=== PATIENT | female | born 1935 | race Two or more races ===

== ENCOUNTER 2016-08-30 01:56 | Inpatient (IN) | payer MEDICAID, MEDICARE ==
[~2016-08-30] VITALS: Ht 154.9 cm; Wt 64.0 kg
[2016-08-30] MEDS ORDERED: ASPIRIN 81 MG TAB.CHEW ONE (02:03)
[2016-08-30] MEDS ORDERED: NITROGLYCERIN 0.4 MG/TAB BOTTLE ONE (02:09)
[2016-08-30] MEDS ORDERED: ASPIRIN 81 MG TAB.CHEW PO ONE (02:30)
[2016-08-30] MEDS ORDERED: NITROGLYCERIN 0.4 MG/TAB BOTTLE SL ONE (02:30)
[2016-08-30 02:31] LABS: BASOPHILS % (AUTO) 0.2 % (0.0-2.0); DIFF TOTAL % 100 %; EOSINOPHILS # (AUTO) 0.1 /CMM (0.0-0.7); EOSINOPHILS % (AUTO) 1.9 % (0.0-6.0); HEMATOCRIT 41 % (33-45); HEMOGLOBIN 13.7 g/dL (11.5-14.8); LYMPHOCYTES # (AUTO) 0.7 /CMM (0.8-4.8); LYMPHOCYTES % (AUTO) 24.2 % (20.0-44.0); MEAN CORPUSCULAR HEMOGLOBIN 29 PG (26.0-33.0); MEAN CORPUSCULAR HGB CONC 34 g/dl (31.0-36.0); MEAN CORPUSCULAR VOLUME 87 fL (82-100); MONOCYTES % (AUTO) 0.7 % (2.0-12.0); NEUTROPHILS # (AUTO) 2.2 /CMM (1.8-8.9); PLATELET COUNT (AUTO) 141 /CMM (150-450); RED BLOOD CELL COUNT(AUTO) 4.67 MIL/uL (4.0-5.2)
[2016-08-30 02:42] LABS: CALCIUM, SERUM 9.1 mg/dL (8.5-10.1); CREATININE 1.1 mg/dL (0.6-1.3); POTASSIUM 4.1 mmol/L (3.5-5.1)
[2016-08-30 02:49] LABS: TROPONIN I 0.034 ng/mL (0.00-0.056)
[2016-08-30 02:52] LABS: INR 0.94 (0.87-1.13); PROTHROMBIN TIME 10.2 SECS (9.5-12.7)
[2016-08-30] MEDS ORDERED: MAG HYDROX/AL HYDROX/SIMETH 30 ML UDC PO PRN (03:00)
[2016-08-30] MEDS ORDERED: ACETAMINOPHEN 325 MG TABLET PO PRN (03:00)
[2016-08-30] MEDS ORDERED: Z GUARD REMEDY 2 OZ OINT TP PRN (03:00)
[2016-08-30] MEDS ORDERED: MORPHINE SULFATE INJ 2 MG/ML DISP.SYRIN IV PRN (03:00)
[2016-08-30] MEDS ORDERED: ZOLPIDEM TARTRATE 5 MG TABLET PO PRN ×2 (03:00→08:00)
[2016-08-30] MEDS ORDERED: MAGNESIUM HYDROXIDE 30 ML UDC PO PRN (03:00)
[2016-08-30] MEDS ORDERED: NITROGLYCERIN 0.4 MG/TAB BOTTLE SL PRN (03:00)
[2016-08-30] MEDS ORDERED: ONDANSETRON HCL/PF 4 MG/2 ML VIAL IVP PRN (03:00)
[2016-08-30] MEDS ORDERED: HYDROCODONE/APAP 5/325MG 1 EACH TABLET PO PRN (03:00)
[2016-08-30] MEDS ORDERED: ENOXAPARIN SODIUM 40 MG/0.4 ML DISP.SYRIN SQ SCH (03:00)
[2016-08-30 03:05] VITALS: BP 122/60
[2016-08-30 03:32] LABS: PHOSPHORUS 4.4 mg/dL (2.5-4.9)
[2016-08-30] MEDS ORDERED: HYDROCODONE/APAP 5/325MG 1 EACH TABLET ONE (03:39)
[2016-08-30] MEDS ORDERED: ENOXAPARIN SODIUM 40 MG/0.4 ML DISP.SYRIN SQ ONE (03:39)
[2016-08-30 04:03] VITALS: BP 122/50
[2016-08-30] MEDS ORDERED: CHOL100044 PO (07:23)
[2016-08-30] MEDS ORDERED: FERR-58 PO (07:23)
[2016-08-30] MEDS ORDERED: ASPI-991 PO (07:23)
[2016-08-30] MEDS ORDERED: CALC-7 PO (07:23)
[2016-08-30] MEDS ORDERED: ZOLP5TAB7 PO (07:23)
[2016-08-30] MEDS ORDERED: MAGN64TA7 PO (07:23)
[2016-08-30] MEDS ORDERED: DEXT15DR EACHEYE (07:24)
[2016-08-30] MEDS ORDERED: SITA100T PO (07:26)
[2016-08-30] MEDS ORDERED: METF500T7 PO (07:26)
[2016-08-30 08:00] VITALS: BP 89/54
[2016-08-30] MEDS ORDERED: PANTOPRAZOLE 40 MG TABLET.DR PO SCH (08:16)
[2016-08-30] MEDS ORDERED: NEO/3.5O15 EACHEYE (08:47)
[2016-08-30] MEDS ORDERED: SODI3.5O14 EACHEYE (08:47)
[2016-08-30] MEDS ORDERED: ASPIRIN EC 81 MG TABLET.DR PO SCH (09:00)
[2016-08-30] MEDS ORDERED: Medication Not On Formulary EA (Sitagliptin Phosphate (Januvia) 100 MG) PO SCH (09:00)
[2016-08-30] MEDS ORDERED: ASPIRIN 81 MG TAB.CHEW PO SCH (09:00)
[2016-08-30] MEDS ORDERED: CALCIUM CARB 250MG /VITAMIN D 1 UDTAB PO SCH (09:00)
[2016-08-30] MEDS ORDERED: FERROUS SULFATE (325 MG) 325 MG/TAB TABLET PO SCH (09:00)
[2016-08-30] MEDS ORDERED: MAGNESIUM CHLORIDE 64 MG TABLET.SA PO SCH (09:00)
[2016-08-30] MEDS ORDERED: CHOLECALCIFEROL 1,000 UNIT TABLET (VIT D3) PO SCH (09:00)
[2016-08-30] MEDS ORDERED: SITAGLIPTIN PHOSPHATE 50 MG TABLET PO SCH (09:00)
[2016-08-30] MEDS ORDERED: LOSARTAN POTASSIUM 50 MG TABLET PO SCH (09:00)
[2016-08-30] MEDS ORDERED: POLYVINYL ALCOHOL 15 ML BOTTLE EACHEYE SCH (09:00)
[2016-08-30] MEDS ORDERED: METFORMIN XR 500 MG TAB.SR.24H PO SCH (09:00)
[2016-08-30 09:02] LABS: THYROID STIMULATING HORMONE 0.833 uIU/mL (0.358-3.74)
[2016-08-30] MEDS ORDERED: CLOP75TA2 PO (09:45)
[2016-08-30] MEDS ORDERED: SIMV20TA6 PO (09:45)
[2016-08-30] MEDS ORDERED: LISI10TA5 PO (09:45)
[2016-08-30] MEDS ORDERED: MELO-264 PO (09:45)
[2016-08-30] MEDS ORDERED: VITA400C24 PO (09:45)
[2016-08-30] MEDS ORDERED: PREG75CA PO (09:45)
[2016-08-30] MEDS ORDERED: ATEN25TA PO (09:45)
[2016-08-30] MEDS ORDERED: OMEP40CA37 PO (09:45)
[2016-08-30] MEDS ORDERED: ATOR40TA PO (11:09)
[2016-08-30 12:00] VITALS: BP 119/83
[2016-08-30] MEDS ORDERED: METOPROLOL TARTRATE 25 MG TABLET PO SCH (12:00)
[2016-08-30] MEDS ORDERED: ENOXAPARIN SODIUM 60 MG/0.6 ML DISP.SYRIN SQ SCH (16:00)
[2016-08-31] MEDS ORDERED: ENOXAPARIN SODIUM 40 MG/0.4 ML DISP.SYRIN SQ SCH (09:00)
== END 2016-08-30 13:15 | disposition left against medical advice (07) | DRG 190 ==
LOC: ER 01:58 → TELE 03:18
PROVIDERS: ADMIT Family Medicine; ATTEND Family Medicine
DX: I21.4 Non-ST elevation (NSTEMI) myocardial infarction (principal); I11.0 Hypertensive heart disease with heart failure; I50.9 Heart failure, unspecified; E11.9 Type 2 diabetes mellitus without complications; Z95.1 Presence of aortocoronary bypass graft; I25.10 Atherosclerotic heart disease of native coronary artery without angina pectoris; B34.9 Viral infection, unspecified; E78.5 Hyperlipidemia, unspecified
CPT/HCPCS: 36415; 71010-TC; 80048-TC; 80061-TC; 82306; 82728-TC; 83540-TC; 83735-TC; 83880; 84100-TC; 84439-TC; 84443-TC; 84484-TC; 85025-TC; 85730-TC; 87081-TC; 93307-TC; A4606; J1650; Z7610

== ENCOUNTER 2016-12-17 04:12 | Inpatient (IN) | payer MEDICAID, MEDICARE ==
[2016-12-17] VITALS (47 sets, daily range): BP systolic 75–152; BP diastolic 42–101
[~2016-12-17] VITALS: Ht 165.1 cm; Wt 62.1 kg
[~2016-12-17 04:12] MED LIST: ASPI-991 PO; ATOR40TA PO; CALC-7 PO; CHOL100044 PO; CLOP75TA2 PO; DEXT15DR EACHEYE; FERR-58 PO; NEO/3.5O15 EACHEYE; OMEP40CA37 PO; PREG75CA PO; SITA100T PO; VITA400C24 PO
--- NOTE | 2016-12-17 04:25 | NUR ---
PT A/OX4 C/O SOB AND DIFFICULTY BREATHING, PT WAS GIVEN 162 OF ASPIRIN, 2SPRAYS OF NITRO, AND 5MG OF ALBUTEROL PRIOR TO ARRIVAL BY EMS, PT ON MONITOR, IV PLACED, LABS DRAWN, MD AND RT IN ROOM, PT ON O2, WILL CONTINUE TO MONITOR.
[2016-12-17] MEDS ORDERED: FUROSEMIDE 40 MG/4 ML VIAL IV ONE (04:30)
[2016-12-17] MEDS ORDERED: NITROGLYCERIN PACKET 1 GM PACKET TD ONE (04:30)
[2016-12-17] MEDS ORDERED: ENALAPRILAT DIHYD. (2.5MG/ML) 1.25 MG/ML VIAL IV ONE ×2 (04:30→04:50)
[2016-12-17] MEDS ORDERED: NITROGLYCERIN 0.4 MG/TAB BOTTLE SL ONE ×2 (04:30→07:00)
[2016-12-17] MEDS ORDERED: ALBUTEROL FS 2.5 MG/0.5 ML VIAL.NEB NEB ONE (04:30)
[2016-12-17] MEDS ORDERED: ALBUTEROL FS 2.5 MG/3 ML VIAL.NEB ONE (04:31)
[2016-12-17] MEDS ORDERED: NITROGLYCERIN 0.4 MG/TAB BOTTLE ONE (04:50)
[2016-12-17] MEDS ORDERED: NITROGLYCERIN PACKET 1 GM PACKET ONE (04:50)
[2016-12-17] MEDS ORDERED: FUROSEMIDE 40 MG/4 ML VIAL ONE (04:50)
[2016-12-17 04:54] LABS: BASOPHILS # (AUTO) 0.1 /CMM (0.0-0.2); BASOPHILS % (AUTO) 0.4 % (0.0-2.0); EOSINOPHILS # (AUTO) 0.2 /CMM (0.0-0.7); EOSINOPHILS % (AUTO) 1.3 % (0.0-6.0); HEMATOCRIT 37 % (33-45); HEMOGLOBIN 12.1 g/dL (11.5-14.8); LYMPHOCYTES # (AUTO) 2.8 /CMM (0.8-4.8); LYMPHOCYTES % (AUTO) 21.2 % (20.0-44.0); MEAN CORPUSCULAR HEMOGLOBIN 29 PG (26.0-33.0); MEAN CORPUSCULAR HGB CONC 33 g/dl (31.0-36.0); MEAN CORPUSCULAR VOLUME 87 fL (82-100); MONOCYTES # (AUTO) 0.6 /CMM (0.1-1.30); MONOCYTES % (AUTO) 4.7 % (2.0-12.0); NEUTROPHILS # (AUTO) 9.7 /CMM (1.8-8.9); NEUTROPHILS % (AUTO) 72.4 % (43.0-81.0); PLATELET COUNT (AUTO) 178 /CMM (150-450); RDW COEFFICIENT OF VARIATION 14.1 (11.5-15.0); RED BLOOD CELL COUNT(AUTO) 4.23 MIL/uL (4.0-5.2); WHITE BLOOD COUNT (AUTO) 13.5 K/uL (4.3-11.0)
[2016-12-17 05:06] LABS: INR 0.98 (0.87-1.13); PROTHROMBIN TIME 10.5 SECS (9.5-12.7)
[2016-12-17 05:10] LABS: LACTIC ACID 1.5 mmol/L (0.4-2.0)
[2016-12-17 05:17] LABS: CALCIUM, SERUM 7.9 mg/dL (8.5-10.1); CREATININE 1.6 mg/dL (0.6-1.3); POTASSIUM 4.2 mmol/L (3.5-5.1)
[2016-12-17 05:19] LABS: TROPONIN I 0.977 ng/mL (0.00-0.056)
[2016-12-17 05:24] LABS: ALBUMIN 3.2 g/dL (3.4-5.0); BILIRUBIN,DIRECT 0.1 mg/dL (0.0-0.2); BILIRUBIN,TOTAL 0.3 mg/dL (0.2-1.0); TOTAL PROTEIN, SERUM 6.8 g/dL (6.4-8.2)
[2016-12-17] MEDS ORDERED: IV SET PRIMARY PUMP SET 1 EA INFUS.SET MC ONE ×4 (05:24→17:17)
[2016-12-17] MEDS ORDERED: CEFTRIAXONE 1GM BAG (ER ONLY) 50 ML IV ONE (05:24)
[2016-12-17] MEDS ORDERED: CEFTRIAXONE 1GM BAG (ER ONLY) 1 GM/50 ML PIGGYBACK IV ONE (05:30)
[2016-12-17 05:31] LABS: APPEARANCE,URINE CLOUDY (CLEAR); BILIRUBIN,URINE NEGATIVE (NEGATIVE); BLOOD, URINE 3+ Ery/uL (NEGATIVE); COLOR,URINE YELLOW (YELLOW); KETONES,URINE NEGATIVE (NEGATIVE); LEUKOCYTE ESTERASE ,URINE 3+ (NEGATIVE); NITRITE, URINE NEGATIVE (NEGATIVE); PROTEIN,URINE 1+ mg/dl (NEGATIVE); UGLUCOSE NEGATIVE (NEGATIVE); UROBILINOGEN,URINE 0.2 EU/dL (0.2)
[2016-12-17 05:41] LABS: ADD URINE CULTURE YES; BACTERIA,URINE Moderate /HPF (None Seen); SQUAMOUS EPITHELIAL CELL,UR Few /HPF (None Seen); WBC,URINE 81-100 /HPF (0-3)
--- NOTE | 2016-12-17 05:49 | NUR ---
PT IN BED AND STATES SHE IS DOING BETTER, VSS, BIPAP STILL ON, MD MADE AWARE WILL CONTINUE TO MONITOR.
--- NOTE | 2016-12-17 06:12 | NUR ---
2000ML URINE OUTPUT MD MADE AWARE WILL CONITNUE TO MONITOR.
--- NOTE | 2016-12-17 07:43 | NUR ---
REPORT GIVEN TO ELVIA POLLOCK FOR ICU ROOM 252.
--- NOTE | 2016-12-17 08:22 | NUR ---
WOUND CARE CONSULT: PT REFUSED SKIN ASSESSMENT. WILL SEE PRN.
[2016-12-17] MEDS ORDERED: HEPARIN SODIUM, PORCINE 5000 UNITS/1 ML VIAL SQ SCH (09:00)
[2016-12-17] MEDS ORDERED: ASPIRIN 325 MG TABLET PO SCH (09:00)
[2016-12-17] MEDS ORDERED: FUROSEMIDE 40 MG TABLET PO SCH (09:00)
[2016-12-17] MEDS ORDERED: ONDANSETRON HCL/PF 4 MG/2 ML VIAL IVP PRN (09:30)
[2016-12-17] MEDS ORDERED: MORPHINE SULFATE INJ 2 MG/ML DISP.SYRIN IV PRN ×2 (09:30→11:00)
[2016-12-17] MEDS ORDERED: MAG HYDROX/AL HYDROX/SIMETH 30 ML UDC PO PRN (09:30)
[2016-12-17] MEDS ORDERED: ZOLPIDEM TARTRATE 5 MG TABLET PO PRN (09:30)
[2016-12-17] MEDS ORDERED: MAGNESIUM HYDROXIDE 30 ML UDC PO PRN (09:30)
[2016-12-17 09:52] LABS: MAGNESIUM 1.5 mg/dL (1.8-2.4); PHOSPHORUS 3.7 mg/dL (2.5-4.9)
[2016-12-17] MEDS ORDERED: Magnesium 1GM/D5W 100ML PREMIX PIGGYBACK IV ONE (11:00)
[2016-12-17] MEDS ORDERED: DEXTROSE 50%-WATER 50 ML DISP.SYRIN IV PRN (11:00)
--- NOTE | 2016-12-17 11:30 | NUR ---
SHALE PLANER OPERATOR NOTE 0810: Admitted 81y/o F A/Ox3, Farsi speaking from ER. Transferred via gurney, placed to bed on comfortable position. Skin assessment done, noted with left lateral thigh bruise, taken picture and attached to chart. Was on Bipap in ER, patient verbalizing she can breathe better now, placed on 4LPM of O2 via NC, 96% SPO2. No respiratory distress noted at this time. With RW g18 PIV, started another PIV g20 on the LW. With Boyer cath intact, noted with large amount of clear pale yellow urine, SP Lasix from ER. SP 90's on the monitor. 1000: S/E by Dr. Rosas, with order for repeat trop. 1100: Patient with c/o pain on BLE, obtained order for Morphine 2mg q4 PRN. Made PRIVATE WEALTH ADVISOR aware re: the Trop 2.269, awaiting Dr. White for cardio consult. 1115: S/E by Harpreet PRIVATE WEALTH ADVISOR for F/U, interviewed patient re: BLE edema, patient said she had test last month and all negative. Morphine 2 given as ordered. Mag 1bag started for level 1.5. removed nitro patch for noted SBP 90's.
[2016-12-17] MEDS: BLOOD SUGAR DIAGNOSTIC 1 EACH STRIP IN SCH ×3 (12:12→22:00)
[2016-12-17] MEDS: INSULIN REGULAR, HUMAN 100 UNIT/ML 3 ML VIAL SQ PRN (12:16)
[2016-12-17] MEDS ORDERED: FUROSEMIDE 40 MG/4 ML VIAL IV SCH (13:00)
[2016-12-17] MEDS ORDERED: IV NS 0.9% 250 ML IV STA (13:20)
--- NOTE | 2016-12-17 13:30 | NUR ---
HEAD BOOKKEEPER NOTE 1330: SP 250mL bolus for SBP 70-80's ordered by Dr. Macedo. said to hold Lasix. Still with SBP 80's, made Harpreet MACHINE SHOP SUPERVISOR aware, with order to give more 250mL bolus and PICC line insertion.
[2016-12-17] MEDS ORDERED: IV NS 0.9% 250 ML IV ONE (14:08)
[2016-12-17 15:39] LABS: CREATININE, URINE 17.4 MG/DL (30.0-125.0)
[2016-12-17] MEDS ORDERED: HEPARIN SODIUM, PORCINE 5000 UNITS/1 ML VIAL IV ONE (16:20)
[2016-12-17] MEDS: PREGABALIN 25 MG CAPSULE PO SCH (16:44)
[2016-12-17] MEDS: POLYVINYL ALCOHOL 15 ML BOTTLE EACHEYE SCH (16:45)
[2016-12-17] MEDS: FERROUS SULFATE (325 MG) 325 MG/TAB TABLET PO SCH (16:45)
[2016-12-17] MEDS: CALCIUM CARB 250MG /VITAMIN D 1 UDTAB PO SCH (16:45)
[2016-12-17] MEDS: HEPARIN INFUSION/D5W 500 ML IV PRN (17:25)
--- NOTE | 2016-12-17 18:35 | NUR ---
GROUND SURVEILLANCE SYSTEMS OPERATOR NOTE S/E by Dr. Anne, patient on Heparin drip @ 800units/hr as ordered. No any significant changes noted at this time. SBP 80-90's, aware. Asked for Levophed standing order, said he will review chart and nurses to keep an eye on the SBP. Patient eating dinner at this time, daughter at bedside, discussed re: the POC. BS 126.
[2016-12-17] MEDS ORDERED: NOREPINEPHRINE 16 MG in IV D5W 500 ML IV PRN (19:30)
--- NOTE | 2016-12-17 19:30 | NUR ---
BULK SEALER OPERATOR RCD PT W/DX RESP FAIL; PT IS A/O x4; FARSI SPEAKING. ABLE TO MAKE NEEDS KNOWN. NSR ON MONITOR. BLE EDEMA +4; BLE ELEVATED ON PILLOWS. O2 2L VIA NC. NOR TOM DIST NOTED. KRUEGER CATHETER DRAINING YELLOW URINE W/SEDIMENT. HEPARIN DRIP AT 800 UNITS/HR W/PTT TO BE DONE AT 2335. PT DENIES PAIN. HOB ELEVATED. CONTINUE TO MONITOR.
[2016-12-17] MEDS ORDERED: CARVEDILOL 3.125 MG TABLET PO SCH (21:00)
[2016-12-17] MEDS: ATORVASTATIN 40 MG TABLET PO SCH (22:39)
--- NOTE | 2016-12-17 23:35 | NUR ---
STORE SALES CONSULTANT PTT PTT 49; NO CHANGES TO HEPARIN DRIP PER PROTOCOL. RECHECK IN 6 HRS.
--- NOTE | 2016-12-17 23:40 | NUR ---
ENROLLMENT COUNSELOR PT DECLINED INSULIN COVERAGE FOR BLOOD SUGAR 150. CONTINUE TO MONITOR.
[2016-12-18] VITALS (35 sets, daily range): BP systolic 83–118; BP diastolic 25–67
[2016-12-18 05:06] LABS: BASOPHILS % (AUTO) 0.6 % (0.0-2.0); EOSINOPHILS # (AUTO) 0.2 /CMM (0.0-0.7); EOSINOPHILS % (AUTO) 2.4 % (0.0-6.0); HEMATOCRIT 35 % (33-45); HEMOGLOBIN 11.2 g/dL (11.5-14.8); LYMPHOCYTES # (AUTO) 2.8 /CMM (0.8-4.8); LYMPHOCYTES % (AUTO) 39.2 % (20.0-44.0); MEAN CORPUSCULAR HEMOGLOBIN 29 PG (26.0-33.0); MEAN CORPUSCULAR HGB CONC 33 g/dl (31.0-36.0); MEAN CORPUSCULAR VOLUME 88 fL (82-100); MONOCYTES # (AUTO) 0.7 /CMM (0.1-1.30); MONOCYTES % (AUTO) 9.7 % (2.0-12.0); NEUTROPHILS # (AUTO) 3.4 /CMM (1.8-8.9); NEUTROPHILS % (AUTO) 48.1 % (43.0-81.0); PLATELET COUNT (AUTO) 148 /CMM (150-450); RED BLOOD CELL COUNT(AUTO) 3.92 MIL/uL (4.0-5.2)
[2016-12-18 05:18] LABS: CALCIUM, SERUM 8.5 mg/dL (8.5-10.1); CREATININE 1.2 mg/dL (0.6-1.3); MAGNESIUM 1.9 mg/dL (1.8-2.4); PHOSPHORUS 4.5 mg/dL (2.5-4.9); POTASSIUM 3.6 mmol/L (3.5-5.1)
[2016-12-18] MEDS ORDERED: IV NS 0.9% 250 ML IV ONE (05:42)
[2016-12-18] MEDS: CEFTRIAXONE 1 G in IV D5W 50 ML IV SCH (05:46)
[2016-12-18] MEDS ORDERED: IV NS 0.9% 250 ML IV PRN (06:00)
--- NOTE | 2016-12-18 06:00 | NUR ---
DIET TECH PTT PTT 49; NO CHANGES TO HEPARIN DRIP PER PROTOCOL. RECHECK IN AM.
--- NOTE | 2016-12-18 07:00 | NUR ---
INDUSTRIAL PRODUCTION MANAGER- INITIAL NOTE RECEIVED PT A/O X3. ON 2L NC, RESPIRATIONS EVEN AND UNLABORED, NO SOB OR DISTRESS PRESENT. PT DENIES ANY PAIN OR DISCOMFORT. BEDSIDE MONITOR REVEALS NSR, HR= 76. LEFT WRIST 20G RUNNING HEPARIN GTT AT 800 UNITS/HR. NEXT PTT TO BE DRAWN TOMORROW AM. KRUEGER CATHETER PRESENT AND DRAINING TO GRAVITY CLEAR, YELLOW URINE. SAFETY MEASURES TAKEN: BED LOCKED AND IN LOW POSITION, SIDE RAILS UP X2, BED ALARM ON AND CALL LIGHT WITHIN REACH, WILL CONTINUE TO MONITOR.
[2016-12-18] MEDS: BLOOD SUGAR DIAGNOSTIC 1 EACH STRIP IN SCH ×4 (08:13→21:37)
[2016-12-18] MEDS: ASPIRIN EC 81 MG TABLET.DR PO SCH (08:14)
[2016-12-18] MEDS: CLOPIDOGREL BISULFATE 75 MG TABLET PO SCH (08:14)
[2016-12-18] MEDS: CHOLECALCIFEROL 1,000 UNIT TABLET (VIT D3) PO SCH (08:14)
[2016-12-18] MEDS: FERROUS SULFATE (325 MG) 325 MG/TAB TABLET PO SCH ×2 (08:14→17:05)
[2016-12-18] MEDS: PREGABALIN 25 MG CAPSULE PO SCH ×2 (08:14→17:05)
[2016-12-18] MEDS: CALCIUM CARB 250MG /VITAMIN D 1 UDTAB PO SCH ×2 (08:14→17:05)
[2016-12-18] MEDS: VITAMIN E 400 UNIT CAPSULE PO SCH (08:20)
[2016-12-18] MEDS: PANTOPRAZOLE 40 MG VIAL IV SCH (08:20)
[2016-12-18] MEDS: NEO/POLY/DEXA OPHTH OINT 3.5 GM TUBE EACHEYE SCH ×3 (08:29→21:39)
[2016-12-18] MEDS: POLYVINYL ALCOHOL 15 ML BOTTLE EACHEYE SCH ×2 (08:29→17:05)
[2016-12-18] MEDS ORDERED: FUROSEMIDE 20 MG/2 ML VIAL IV SCH (09:00)
[2016-12-18] MEDS ORDERED: FUROSEMIDE 40 MG/4 ML VIAL IV SCH (09:30)
--- NOTE | 2016-12-18 09:45 | NUR ---
CATIE MARQUES ON THE UNIT DISCUSSED CASE. HE ORDERS TO KEEP PT ON HEPARIN DRIP UNTIL PT CAN RECEIVE CARDIAC STENT. AWAITING DR. NOLASCO, CARDIOLOGY FOR THE PLAN FOR PROCEDURE.
[2016-12-18] MEDS: ACETAMINOPHEN 325 MG TABLET PO PRN ×2 (10:36→17:05)
[2016-12-18] MEDS: FUROSEMIDE 40 MG/4 ML VIAL IV SCH ×2 (12:22→21:37)
[2016-12-18] MEDS: INSULIN REGULAR, HUMAN 100 UNIT/ML 3 ML VIAL SQ PRN ×2 (12:25→17:05)
--- NOTE | 2016-12-18 15:16 | NUR ---
PAGED RADIOLOGY US TECH FOR THE US OF THE LOWER EXTREMITIES. TECH STATES THAT HE CAME UP AND LEFT BECAUSE THE PT WAS EATING, HE SAYS HE WILL COME BACK DID NOT SPECIFY AT TIME.
--- NOTE | 2016-12-18 17:47 | NUR ---
DR. NOLASCO SPEAKS WITH CASE MGMT REGARDING PLAN FOR CARDIAC CATH AND TERRANCE CALLS STATING THAT THEY FAXED THE CASE OVER TO [place] WHERE THE PT'S OWN DIE MAKER BENCH STAMPING IS. AT THIS TIME THERE IS NO BED AND THEY WILL FOLLOW UP TOMORROW FOR PLACEMENT.
[2016-12-18] MEDS: HEPARIN INFUSION/D5W 500 ML IV PRN (19:00)
--- NOTE | 2016-12-18 19:35 | NUR ---
SERVICE DESK ASSOCIATE RCD PT W/DX RESP FAIL; PT IS A/O x4; FARSI SPEAKING. ABLE TO MAKE NEEDS KNOWN. NSR ON MONITOR. BLE EDEMA +4; BLE ELEVATED ON PILLOWS. O2 2L VIA NC. NO RESP DIST NOTED. KRUEGER CATHETER DRAINING YELLOW URINE W/SEDIMENT. HEPARIN DRIP AT 800 UNITS/HR W/PTT TO BE DONE IN AM. PT DENIES PAIN. HOB ELEVATED. CONTINUE TO MONITOR.
[2016-12-18] MEDS: ATORVASTATIN 40 MG TABLET PO SCH (21:37)
--- NOTE | 2016-12-18 21:50 | NUR ---
CLINICAL EDUCATOR ACCU CHECK 183; PER PT TOO HIGH AND IT SHOULD BE RECHECKED; 161. PT DECLINED INSULIN. CONTINUE TO MONITOR.
[2016-12-19] VITALS (20 sets, daily range): BP systolic 83–123; BP diastolic 47–69
[2016-12-19 04:40] LABS: BASOPHILS % (AUTO) 0.7 % (0.0-2.0); EOSINOPHILS # (AUTO) 0.2 /CMM (0.0-0.7); EOSINOPHILS % (AUTO) 3.2 % (0.0-6.0); HEMATOCRIT 36 % (33-45); HEMOGLOBIN 11.9 g/dL (11.5-14.8); LYMPHOCYTES # (AUTO) 3.3 /CMM (0.8-4.8); LYMPHOCYTES % (AUTO) 45.5 % (20.0-44.0); MEAN CORPUSCULAR HEMOGLOBIN 29 PG (26.0-33.0); MEAN CORPUSCULAR HGB CONC 33 g/dl (31.0-36.0); MEAN CORPUSCULAR VOLUME 87 fL (82-100); MONOCYTES # (AUTO) 0.6 /CMM (0.1-1.30); MONOCYTES % (AUTO) 8.8 % (2.0-12.0); NEUTROPHILS % (AUTO) 41.8 % (43.0-81.0); PLATELET COUNT (AUTO) 169 /CMM (150-450); RDW COEFFICIENT OF VARIATION 14.9 (11.5-15.0); WHITE BLOOD COUNT (AUTO) 7.2 K/uL (4.3-11.0)
[2016-12-19 04:52] LABS: CALCIUM, SERUM 8.5 mg/dL (8.5-10.1); CREATININE 1.5 mg/dL (0.6-1.3); MAGNESIUM 1.6 mg/dL (1.8-2.4); POTASSIUM 3.4 mmol/L (3.5-5.1)
[2016-12-19] MEDS: CEFTRIAXONE 1 G in IV D5W 50 ML IV SCH (05:26)
--- NOTE | 2016-12-19 07:05 | NUR ---
ASSEMBLER EQUIPMENT- INITIAL NOTE RECEIVED PT A/O X3. ON 2L NC, RESPIRATIONS EVEN AND UNLABORED, NO SOB OR DISTRESS PRESENT. PT DENIES ANY PAIN OR DISCOMFORT. BEDSIDE MONITOR REVEALS NSR, HR= 87. TWO IVS PRESENT: 1) LEFT WRIST 20G HL AND 2) RAMIN MIDLINE RUNNING HEPARIN GTT AT 950 UNITS/HR. NEXT PTT TO BE DRAWN TODAY AT 12 PM. KRUEGER CATHETER PRESENT AND DRAINING TO GRAVITY CLEAR, YELLOW URINE. SAFETY MEASURES TAKEN: BED LOCKED AND IN LOW POSITION, SIDE RAILS UP X2, BED ALARM ON AND CALL LIGHT WITHIN REACH, WILL CONTINUE TO MONITOR.
[2016-12-19] MEDS: BLOOD SUGAR DIAGNOSTIC 1 EACH STRIP IN SCH ×4 (07:58→21:50)
[2016-12-19] MEDS ORDERED: IV NS 0.9% 250 ML IV ONE (08:48)
[2016-12-19] MEDS: POLYVINYL ALCOHOL 15 ML BOTTLE EACHEYE SCH ×2 (09:01→16:35)
[2016-12-19] MEDS: PANTOPRAZOLE 40 MG VIAL IV SCH (09:01)
[2016-12-19] MEDS: ASPIRIN EC 81 MG TABLET.DR PO SCH (09:02)
[2016-12-19] MEDS: PREGABALIN 25 MG CAPSULE PO SCH ×2 (09:02→16:35)
[2016-12-19] MEDS: CHOLECALCIFEROL 1,000 UNIT TABLET (VIT D3) PO SCH (09:02)
[2016-12-19] MEDS: CALCIUM CARB 250MG /VITAMIN D 1 UDTAB PO SCH ×2 (09:02→16:35)
[2016-12-19] MEDS: CLOPIDOGREL BISULFATE 75 MG TABLET PO SCH (09:02)
[2016-12-19] MEDS: FERROUS SULFATE (325 MG) 325 MG/TAB TABLET PO SCH ×2 (09:02→16:35)
[2016-12-19] MEDS: VITAMIN E 400 UNIT CAPSULE PO SCH (09:06)
[2016-12-19] MEDS ORDERED: FUROSEMIDE 20 MG/2 ML VIAL IV ONE (09:30)
[2016-12-19] MEDS ORDERED: Magnesium 1GM/D5W 100ML PREMIX PIGGYBACK IV ONE (10:00)
[2016-12-19] MEDS ORDERED: POTASSIUM CHLORIDE 20 MEQ POWDER PACKET PO ONE (10:30)
[2016-12-19] MEDS ORDERED: Magnesium 1GM/D5W 100ML PREMIX 100 ML IV SCH (10:30)
--- NOTE | 2016-12-19 10:30 | NUR ---
MAGNESIUM 1 GM NON-ADMINISTERED (DUPLICATE ORDER).
[2016-12-19] MEDS ORDERED: IV SET PRIMARY PUMP SET 1 EA INFUS.SET MC ONE (10:34)
--- NOTE | 2016-12-19 12:00 | NUR ---
PTT RESULTED= 44. HEPARIN GTT INCREASED BY 150 UNITS/HR, NEW RATE IS HEPARIN 1100 UNITS/HR. VERIFIED WITH CHRISTIANO POLLOCK. NEXT PTT TO BE DRAWN AT 1800. ORDERS PLACED AND CARRIED OUT. WILL CONTINUE TO MONITOR.
[2016-12-19] MEDS: INSULIN REGULAR, HUMAN 100 UNIT/ML 3 ML VIAL SQ PRN ×3 (12:01→21:49)
[2016-12-19] MEDS: HEPARIN INFUSION/D5W 500 ML IV PRN (16:34)
--- NOTE | 2016-12-19 18:00 | NUR ---
INFORMATION OPERATOR- TRANSFER NOTE PT TRANSFERRED TO TELE ROOM 111-1. REPORT GIVEN TO RYAN POLLOCK. ALL BELONGINGS SENT WITH PT. PT IN NO ACUTE DISTRESS. LAB RAMIRO 1800 PTT LEVEL, RESULTS PENDING. ENDORSED TO NURSE NEED TO F/U ON PTT LEVEL AND ADJUST HEPARIN GTT IF NECESSARY. RN AWARE.
--- NOTE | 2016-12-19 18:15 | NUR ---
STEM MAKER- DR. NOLASCO D/C'D HEPARIN GTT. CALLED AND INFORMED TINNER HELPERPHILL DAVIS THAT HEPARIN GTT WAS D/C'D, NO NEED TO F/U ON PTT RESULT. RN AWARE.
--- NOTE | 2016-12-19 18:25 | NUR ---
RN NOTE RECEIVED PT ON BED FROM ICU ,A/O X3. ON 2L NC, RESPIRATIONS EVEN AND UNLABORED, ON TELE PT IS SR IN 80'S ,LEFT WRIST 20G HL AND RAMIN MIDLINE RUNNING SITE CDI, PT KARINE ANY DISTRESS AT THIS TIME, SR UP x3, BED LOCKED AND IN LOW POSITION , HEPARIN GTT D/JESSIE PER MD ORDER ,SIDE RAILS UP X2, SUPPORTIVE FAMILY AT THE BEDSIDE, CALL LIGHT WITHIN REACH, WILL CONTINUE TO MONITOR.
--- NOTE | 2016-12-19 19:30 | NUR ---
CONFERENCE SERVICES DIRECTOR NOTES RECEIVED PTS ON BED AWAKE ALERT AND VERBALLY RESPONSIVE ABLE TO MAKE NEEDS KNOWN , FAMILY AT BEDSIDE, PTS ON SR WITH INVERTED T WAVE ON THE MONITOR , NO SOB NO DISTRESS NOTED , DENIES PAIN AT THIS TIME . ALL NEEDS ATTENDED TOO CALL LIGHT WITHIN REACH V/S STABLE AFEBRILE ON 2 LITERS VIA NC SATING 96% ,KEPT PTS CLEAN DRY AND COMFORTABLE .
--- NOTE | 2016-12-19 20:00 | NUR ---
ALBACORE FISHING BOAT CREWMAN NOTES RECEIVED A CALL FROM [facility] SAID PTS TO HAVE LEFT HEART CATH [facility] AT 0P 2 PTS MUST BE IN THE HOSPITAL BY 8AM NPO EXCEPT MEDS .SPOKE TO DR GRAVES CONFIRMING THE PROCEDURE , PLACE A CALL ALSO TO THE DAUGHTER-BRUNA INFORMING THEM ABOUT THE PROCEDURE TO BE DONE IN [place] , SHE SAID SHE GONNA BE THERE IN [facility] AT 8AM. PTS INSTRUCTED TO BE NPO POST [place] . PTS VERBALIZE UNDERSTANDING.
--- NOTE | 2016-12-19 21:00 | NUR ---
FATS AND OILS LOADER NOTES DUE ALL MEDS GIVEN ORDERED , BLOOD SUGAR FOR 10 PM IS 235 - 4 UNITS OF REGULAR INSULIN GIVEN PER SLIDING SCALE, WILL CHECK BS AGAIN N AM .
[2016-12-19] MEDS: ATORVASTATIN 40 MG TABLET PO SCH (21:30)
[2016-12-19] MEDS: NEO/POLY/DEXA OPHTH OINT 3.5 GM TUBE EACHEYE SCH (21:31)
[2016-12-20] VITALS: BP 98/56
[2016-12-20 04:00] VITALS: BP 106/57
[2016-12-20] MEDS: CEFTRIAXONE 1 G in IV D5W 50 ML IV SCH (05:15)
[2016-12-20 06:52] LABS: BASOPHILS % (AUTO) 0.5 % (0.0-2.0); EOSINOPHILS # (AUTO) 0.3 /CMM (0.0-0.7); EOSINOPHILS % (AUTO) 4.3 % (0.0-6.0); HEMATOCRIT 39 % (33-45); HEMOGLOBIN 12.8 g/dL (11.5-14.8); LYMPHOCYTES # (AUTO) 2.3 /CMM (0.8-4.8); LYMPHOCYTES % (AUTO) 33.8 % (20.0-44.0); MEAN CORPUSCULAR HEMOGLOBIN 29 PG (26.0-33.0); MEAN CORPUSCULAR HGB CONC 33 g/dl (31.0-36.0); MEAN CORPUSCULAR VOLUME 88 fL (82-100); MONOCYTES # (AUTO) 0.7 /CMM (0.1-1.30); NEUTROPHILS # (AUTO) 3.4 /CMM (1.8-8.9); NEUTROPHILS % (AUTO) 50.4 % (43.0-81.0); PLATELET COUNT (AUTO) 135 /CMM (150-450); RDW COEFFICIENT OF VARIATION 14.2 (11.5-15.0); RED BLOOD CELL COUNT(AUTO) 4.39 MIL/uL (4.0-5.2); WHITE BLOOD COUNT (AUTO) 6.7 K/uL (4.3-11.0)
--- NOTE | 2016-12-20 07:10 | NUR ---
RN INITIAL NOTE REPORT RECEIVED FROM OM NURSE. PT A/O X3 RESTING COMFORTABLY IN BED. NC 2 L NO ACUTE S/S OF SOB. IV UPPER ARM MIDLINE, L HAND #20 G PATENT FLUSHED AND INTACT. ALL SAFETY MEASURES IN PLACE. WILL CONTINUE TO MONITOR CLOSELY AWAITING AMBULANCE FOR TRANSFER TO [place].
[2016-12-20 07:13] LABS: CALCIUM, SERUM 9.1 mg/dL (8.5-10.1); CREATININE 1.3 mg/dL (0.6-1.3); MAGNESIUM 2.4 mg/dL (1.8-2.4); PHOSPHORUS 4.6 mg/dL (2.5-4.9); POTASSIUM 4.6 mmol/L (3.5-5.1)
[2016-12-20] MEDS: BLOOD SUGAR DIAGNOSTIC 1 EACH STRIP IN SCH ×2 (07:18→12:00)
--- NOTE | 2016-12-20 07:33 | NUR ---
BACK UP WORKER NOTES PTS IS FOR LEFT HEART CATH IN [facility], RTEPORT GIVEN TO RN ENMA IN [facility] , AWAITING FOR AMBULANCE MEDRESPONSE, PTS WAS ENDORSE TO [facility] FOR CONTINUITY OF CARE.
--- NOTE | 2016-12-20 07:52 | NUR ---
RN NOTE REPORT GIVEN TO EMT PT BEING TRANSFERRED TO [place] FOR L HEART CATH PLACEMENT. REPORT GIVEN TO ENMA BY PM NURSE @ [place]. PT STABLE NO C/O PAIN PT NPO FOR SURGERY. ID BAND INTACT. IV L UA MIDLINE AND L HAND #20G INTACT FLUSHED AND PATENT. ALL TRANSFER INFORMATION GIVEN TO EMT. BELONGINGS TAKEN WITH PT. PT WANTED TO TAKE BELONGINGS. PT CLEAN AND DRY. AWAITING HER RETURN.
[2016-12-20 08:00] VITALS: BP 128/78
[2016-12-20] MEDS: PANTOPRAZOLE 40 MG VIAL IV SCH (09:00)
[2016-12-20] MEDS: PREGABALIN 25 MG CAPSULE PO SCH (09:00)
[2016-12-20] MEDS: CHOLECALCIFEROL 1,000 UNIT TABLET (VIT D3) PO SCH (09:00)
[2016-12-20] MEDS: POLYVINYL ALCOHOL 15 ML BOTTLE EACHEYE SCH (09:00)
[2016-12-20] MEDS: CLOPIDOGREL BISULFATE 75 MG TABLET PO SCH (09:00)
[2016-12-20] MEDS: CALCIUM CARB 250MG /VITAMIN D 1 UDTAB PO SCH (09:00)
[2016-12-20] MEDS: ASPIRIN EC 81 MG TABLET.DR PO SCH (09:00)
[2016-12-20] MEDS ORDERED: FUROSEMIDE 40 MG/4 ML VIAL IV SCH (09:00)
[2016-12-20] MEDS: FERROUS SULFATE (325 MG) 325 MG/TAB TABLET PO SCH (09:00)
[2016-12-20] MEDS: VITAMIN E 400 UNIT CAPSULE PO SCH (09:00)
--- NOTE | 2016-12-20 14:30 | NUR ---
RN NOTE PT WILL NOT BE RETURNING TO [facility] PT LEFT WITH BELONGINGS BAG.
== END 2016-12-20 17:02 | disposition short-term general hospital (02) | DRG 190 ==
LOC: ER 04:15 → ICU 06:51 → TELE1 12-19 18:39
PROVIDERS: ADMIT Nurse Practitioner Acute Care; ATTEND Nurse Practitioner Acute Care
PROC: 5A09357 Assistance with Respiratory Ventilation, Less than 24 Consecutive Hours, Continuous Positive Airway Pressure (ICD-10-PCS; principal; 2016-12-17)
PROC: 05H633Z Insertion of Infusion Device into Left Subclavian Vein, Percutaneous Approach (ICD-10-PCS; 2016-12-18)
DX: I21.4 Non-ST elevation (NSTEMI) myocardial infarction (principal); J96.01 Acute respiratory failure with hypoxia; I50.33 Acute on chronic diastolic (congestive) heart failure; N17.9 Acute kidney failure, unspecified; I13.0 Hypertensive heart and chronic kidney disease with heart failure and stage 1 through stage 4 chronic kidney disease, or unspecified chronic kidney disease; E87.1 Hypo-osmolality and hyponatremia; N39.0 Urinary tract infection, site not specified; I25.10 Atherosclerotic heart disease of native coronary artery without angina pectoris; E78.5 Hyperlipidemia, unspecified; N18.9 Chronic kidney disease, unspecified; I25.2 Old myocardial infarction; Z95.1 Presence of aortocoronary bypass graft; E11.22 Type 2 diabetes mellitus with diabetic chronic kidney disease; I34.0 Nonrheumatic mitral (valve) insufficiency; E88.81 Metabolic syndrome and other insulin resistance; E66.9 Obesity, unspecified; B96.20 Unspecified Escherichia coli [E. coli] as the cause of diseases classified elsewhere; E83.42 Hypomagnesemia; E87.6 Hypokalemia
CPT/HCPCS: 36415; 36569; 71010-TC; 80048-TC; 80061-TC; 80076-TC; 81000-TC; 82570-TC; 82962-TC; 83605-TC; 83735-TC; 83880; 84100-TC; 84484-TC; 85025-TC; 85730-TC; 87040-TC; 87081-TC; 87086-TC; 87186-TC; 93307-TC; 93970-TC; 94799-TC; A4606; C9113; J0696; J1644; J1815; J1940; J2270; J3475; J3490; J7050; J7060; Z7610

== ENCOUNTER 2017-06-24 09:14 | Emergency (ER) | payer MEDICARE, MEDICAID ==
[~2017-06-24] VITALS: Ht 142.2 cm; Wt 70.3 kg
[2017-06-24] MEDS ORDERED: ONDANSETRON HCL/PF 4 MG/2 ML VIAL ONE (09:25)
[2017-06-24] MEDS ORDERED: MORPHINE SULFATE INJ 10 MG/ML DISP.SYRIN ONE ×3 (09:26→12:45)
[2017-06-24] MEDS ORDERED: IV NS 0.9% 500 ML BAG IV ONE (09:30)
[2017-06-24] MEDS ORDERED: ONDANSETRON HCL/PF 4 MG/2 ML VIAL IVP ONE (09:30)
[2017-06-24] MEDS ORDERED: MORPHINE SULFATE INJ 2 MG/ML DISP.SYRIN IV ONE ×3 (09:30→13:00)
--- NOTE | 2017-06-24 09:30 | NUR ---
PT TO CTSCAN
[2017-06-24 09:37] LABS: BASOPHILS # (AUTO) 0.1 /CMM (0.0-0.2); BASOPHILS % (AUTO) 0.9 % (0.0-2.0); EOSINOPHILS # (AUTO) 0.2 /CMM (0.0-0.7); HEMATOCRIT 39 % (33-45); HEMOGLOBIN 12.8 g/dL (11.5-14.8); LYMPHOCYTES # (AUTO) 2.3 /CMM (0.8-4.8); LYMPHOCYTES % (AUTO) 38.1 % (20.0-44.0); MEAN CORPUSCULAR HEMOGLOBIN 29 PG (26.0-33.0); MEAN CORPUSCULAR HGB CONC 33 g/dl (31.0-36.0); MEAN CORPUSCULAR VOLUME 88 fL (82-100); MONOCYTES # (AUTO) 0.6 /CMM (0.1-1.30); MONOCYTES % (AUTO) 10.7 % (2.0-12.0); NEUTROPHILS # (AUTO) 2.8 /CMM (1.8-8.9); NEUTROPHILS % (AUTO) 47.3 % (43.0-81.0); PLATELET COUNT (AUTO) 192 /CMM (150-450); RDW COEFFICIENT OF VARIATION 13.2 (11.5-15.0); RED BLOOD CELL COUNT(AUTO) 4.48 MIL/uL (4.0-5.2)
[2017-06-24 09:48] LABS: CALCIUM, SERUM 8.7 mg/dL (8.5-10.1); CARBON DIOXIDE 25 mmol/L (21-32); CHLORIDE 107 mmol/L (98-107); CREATININE 1.1 mg/dL (0.6-1.3); GLUCOSE 118 mg/dL (74-106); POTASSIUM 3.9 mmol/L (3.5-5.1); SODIUM SERUM 139 mmol/L (136-145); UREA NITROGEN, BLOOD 26 mg/dL (7-18)
[2017-06-24 09:51] LABS: INR 0.89 (0.87-1.13); PROTHROMBIN TIME 9.3 SECS (9.5-12.7)
[2017-06-24 09:54] LABS: ALANINE AMINOTRANSFERASE 17 U/L (12-78); ALBUMIN 3.2 g/dL (3.4-5.0); ALKALINE PHOSPHATASE 69 U/L (46-116); ASPARTATE AMINOTRANSFERASE 14 U/L (15-37); BILIRUBIN,DIRECT 0.1 mg/dL (0.0-0.2); BILIRUBIN,TOTAL 0.3 mg/dL (0.2-1.0); LIPASE 196 U/L (73-393)
--- NOTE | 2017-06-24 11:15 | NUR ---
URINE SENT TO LAB
[2017-06-24 11:31] LABS: APPEARANCE,URINE Turbid (CLEAR); BILIRUBIN,URINE LARGE (NEGATIVE); BLOOD, URINE Large Ery/uL (NEGATIVE); COLOR,URINE Red (YELLOW); KETONES,URINE >=160 (NEGATIVE); LEUKOCYTE ESTERASE ,URINE Large (NEGATIVE); NITRITE, URINE Negative (NEGATIVE); PROTEIN,URINE >=300 mg/dl (NEGATIVE); UGLUCOSE 250 MG/DL mg/dL (NEGATIVE); UROBILINOGEN,URINE >=8.0 EU/dL (0.2)
[2017-06-24 11:32] LABS: PH,URINE 8.5 (5.0-8.0)
[2017-06-24 11:48] LABS: BACTERIA,URINE Moderate /HPF (None Seen); RBC,URINE TOO NUMEROUS TO COUN /HPF (0-2); SQUAMOUS EPITHELIAL CELL,UR Few /HPF (None Seen); WBC,URINE TOO NUMEROUS TO COUN /HPF (0-3)
[2017-06-24 12:38] VITALS: BP 166/74
[2017-06-24] MEDS ORDERED: CEFTRIAXONE 1GM BAG (ER ONLY) 1 GM/50 ML PIGGYBACK IV ONE (13:30)
--- NOTE | 2017-06-24 13:30 | NUR ---
DR AVILES SPOKE WITH DR ALBA AND ACCEPTED TO CONSULT, DR SUN PAGED FOR ADMISSION
--- NOTE | 2017-06-24 13:41 | NUR ---
PATIENT ACCEPTED BY DR SUN AT [facility], DR AVILES WILL CONSULT FOR UROLOGY THERE WELL. I CALLED NURSING UNDERCUTTER AT [facility] AND PATIENT IS ASSIGNED TO MS 214 PHONE NUMBER FOR REPORT
[2017-06-24] MEDS ORDERED: CEFTRIAXONE 1GM BAG (ER ONLY) 50 ML IV ONE (13:49)
--- NOTE | 2017-06-24 13:52 | NUR ---
CALLED [facility] FOR TRANSPORTATION, ETA 1500
== END 2017-06-24 14:37 | disposition short-term general hospital (02) ==
LOC: ER 09:16
DX: R31.0 Gross hematuria (principal); R10.2 Pelvic and perineal pain; N32.9 Bladder disorder, unspecified; E11.9 Type 2 diabetes mellitus without complications; I10 Essential (primary) hypertension; K57.30 Diverticulosis of large intestine without perforation or abscess without bleeding; I25.10 Atherosclerotic heart disease of native coronary artery without angina pectoris; Z79.82 Long term (current) use of aspirin; Z90.710 Acquired absence of both cervix and uterus; Z95.1 Presence of aortocoronary bypass graft
CPT/HCPCS: 36415; 51702; 74176; 76856; 80048; 80076; 81001; 83690; 85025; 85730; 87077; 87086; 87186 ×2; 96374; 96375; 96376; 99285; A4217 ×3; A4606; J0696; J2270 ×3; J2405; J7030; 81000-TC; Z7610

== ENCOUNTER 2019-05-03 16:09 | Emergency (ER) | payer MEDICARE, OTHER ==
[~2019-05-03] VITALS: Ht 149.9 cm; Wt 71.2 kg
[~2019-05-03 16:09] MED LIST changes: +ASPI-1152 PO; -ASPI-991 PO; +CLOP75TA15 PO; -CLOP75TA2 PO; -FERR-58 PO; +FERR325T23 PO
--- NOTE | 2019-05-03 16:35 | NUR ---
AAOX3, BIBRA C/O GENERALIZED WEAKNESS X 2 DAYS. RR IS EVEN AND UNLABORED WITH NAD NOTED. SKIN IS WARM AND DRY. PLACED ON HOSPITAL GOWN AND MONITOR. WILL CONTINUOUSLY MONITOR THE PATIENT. PROVIDED WARM BLANKET FOR COMFORT. AWAITING MD FOR EVAL.
[2019-05-03] MEDS ORDERED: LISI10TA5 PO (16:39)
[2019-05-03] MEDS ORDERED: ATOR10TA PO (16:39)
[2019-05-03] MEDS ORDERED: METF-440 PO (16:39)
[2019-05-03] MEDS ORDERED: MULT-447 PO (16:39)
[2019-05-03] MEDS ORDERED: OMEG1CAP55 PO (16:39)
[2019-05-03] MEDS ORDERED: FLUO60SO3 TP (16:39)
[2019-05-03] MEDS ORDERED: SILV20CR13 TP (16:39)
[2019-05-03] MEDS ORDERED: DICL100G16 TP (16:39)
[2019-05-03] MEDS ORDERED: KETO15CR2 TP (16:39)
[2019-05-03] MEDS ORDERED: SODI15DR4 EACHEYE (16:39)
[2019-05-03] MEDS ORDERED: CIPR250T4 PO (16:39)
[2019-05-03] MEDS ORDERED: MYRBETRIQ PO (16:39)
[2019-05-03] MEDS ORDERED: ERYT3.5O9 EACHEYE (16:39)
[2019-05-03] MEDS ORDERED: DENO60DI SQ (16:39)
[2019-05-03] MEDS ORDERED: ACET-2605 PO (16:39)
[2019-05-03] MEDS ORDERED: MUPI22OI7 TD (16:39)
[2019-05-03] MEDS ORDERED: ATEN25TA PO (16:39)
--- NOTE | 2019-05-03 16:45 | NUR ---
DR PRUITT AT BS FOR EVAL.
[2019-05-03 16:51] LABS: APPEARANCE,URINE Clear (CLEAR); BILIRUBIN,URINE Negative (NEGATIVE); BLOOD, URINE Negative Ery/uL (NEGATIVE); COLOR,URINE Yellow (YELLOW); KETONES,URINE Negative (NEGATIVE); LEUKOCYTE ESTERASE ,URINE Small (NEGATIVE); NITRITE, URINE Negative (NEGATIVE); PH,URINE 5.5 (5.0-8.0); PROTEIN,URINE Negative (NEGATIVE); UGLUCOSE Negative (NEGATIVE); UROBILINOGEN,URINE 0.2 EU/dL (0.2)
[2019-05-03 16:56] LABS: BASOPHILS # (AUTO) 0.1 /CMM (0.0-0.2); EOSINOPHILS % (AUTO) 1.7 % (0.0-6.0); HEMATOCRIT 40 % (33-45); HEMOGLOBIN 13.3 g/dL (11.5-14.8); LYMPHOCYTES # (AUTO) 2.5 /CMM (0.8-4.8); LYMPHOCYTES % (AUTO) 38.2 % (20.0-44.0); MEAN CORPUSCULAR HGB CONC 33 g/dl (31.0-36.0); MEAN CORPUSCULAR VOLUME 89 fL (82-100); MONOCYTES # (AUTO) 0.6 /CMM (0.1-1.30); NEUTROPHILS # (AUTO) 3.3 /CMM (1.8-8.9); NEUTROPHILS % (AUTO) 50.1 % (43.0-81.0); PLATELET COUNT (AUTO) 145 /CMM (150-450); WHITE BLOOD COUNT (AUTO) 6.6 K/uL (4.3-11.0)
--- NOTE | 2019-05-03 16:56 | NUR ---
JACEK AT BS.
[2019-05-03 17:14] LABS: BACTERIA,URINE Few /HPF (None Seen); SQUAMOUS EPITHELIAL CELL,UR Few /HPF (None Seen)
[2019-05-03 17:15] LABS: RBC,URINE 0-2 /HPF (0-2)
[2019-05-03 17:28] LABS: CALCIUM, SERUM 8.9 mg/dL (8.5-10.1); CARBON DIOXIDE 29 mmol/L (21-32); CHLORIDE 107 mmol/L (98-107); CREATININE 1.3 mg/dL (0.6-1.3); GLUCOSE 144 mg/dL (74-106); POTASSIUM 3.7 mmol/L (3.5-5.1); SODIUM SERUM 143 mmol/L (136-145); UREA NITROGEN, BLOOD 19 mg/dL (7-18)
--- NOTE | 2019-05-03 17:35 | NUR ---
Assisted the patient to the restroom. Ambulates with assistance, steady gait.
--- NOTE | 2019-05-03 17:45 | NUR ---
Dr Anguiano at for an update and re-eval.
--- NOTE | 2019-05-03 18:50 | NUR ---
IV removed. Catheter intact and site benign. Pressure and 4x4 applied to site. No bleeding noted.Patient discharged to home in stable condition. Written and verbal after care instructions given. Patient verbalizes understanding of instruction.
[2019-05-03 19:16] VITALS: BP 133/60
== END 2019-05-03 18:50 | disposition home or self-care (01) ==
LOC: ER 16:15
DX: F43.9 Reaction to severe stress, unspecified (principal); R53.1 Weakness; R51 Headache; I10 Essential (primary) hypertension; E11.9 Type 2 diabetes mellitus without complications; I25.10 Atherosclerotic heart disease of native coronary artery without angina pectoris; Z95.818 Presence of other cardiac implants and grafts; Z98.890 Other specified postprocedural states; Z60.2 Problems related to living alone; Z79.899 Other long term (current) drug therapy; Z79.84 Long term (current) use of oral hypoglycemic drugs; Z79.82 Long term (current) use of aspirin
CPT/HCPCS: 36415; 70450-TC; 71045-TC; 80048-TC; 81000-TC; 84484-TC; 85025-TC

== ENCOUNTER 2022-04-11 20:13 | Emergency (ER) | payer MEDICARE, OTHER ==
[~2022-04-11] VITALS: Ht 157.5 cm; Wt 59.0 kg
[~2022-04-11 20:13] MED LIST changes: +ACET-2605 PO; -ASPI-1152 PO; +ASPI-1420 PO; +ATEN25TA PO; +ATOR10TA PO; -ATOR40TA PO; +CIPR250T4 PO; +DENO60DI SQ; -DEXT15DR EACHEYE; +DICL100G16 TP; +ERYT3.5O9 EACHEYE; -FERR325T23 PO; +FLUO60SO3 TP; +KETO15CR2 TP; +LISI10TA29 PO; +METF-440 PO; +MULT-447 PO; +MUPI22OI7 TD; +MYRBETRIQ PO; -NEO/3.5O15 EACHEYE; +OMEG1CAP55 PO; +OMEP40CA21 PO; -OMEP40CA37 PO; +SILV20CR13 TP; -SITA100T PO; +SODI15DR4 EACHEYE; -VITA400C24 PO
[2022-04-11] MEDS ORDERED: IV NS 0.9% 500 ML BAG IV ONE (20:30)
--- NOTE | 2022-04-11 20:32 | NUR ---
BIBRA88. TO ER BED 6. AAOX3. NOT IN RESP DISTRESS. BROUGHT IN FOR NOTING BLOOD IN THE TOILET WHEN DOES NOT KNOW IF ITS FROM URINE OR BM. THIS HAS BEEN GOING ON FOR THE PAST 2 DAYS. DENIES ANY PAIN. PT IS AFEBRILE. WAS AT THE BEDSIDE FOR EVAL. ORDERS RECEIVED
--- NOTE | 2022-04-11 20:58 | NUR ---
PT TAKEN TO CT VIA [facility]
[2022-04-11 21:21] LABS: CALCIUM, SERUM 8.9 mg/dL (8.5-10.1); CARBON DIOXIDE 28 mmol/L (21-32); CHLORIDE 107 mmol/L (98-107); CREATININE 1.4 mg/dL (0.6-1.3); GLUCOSE 134 mg/dL (74-106); POTASSIUM 3.8 mmol/L (3.5-5.1); SODIUM SERUM 142 mmol/L (136-145); UREA NITROGEN, BLOOD 19 mg/dL (7-18)
[2022-04-11 21:22] LABS: ALANINE AMINOTRANSFERASE 21 U/L (12-78); ALBUMIN 3.3 g/dL (3.4-5.0); ALKALINE PHOSPHATASE 52 U/L (46-116); ASPARTATE AMINOTRANSFERASE 19 U/L (15-37); BILIRUBIN,DIRECT 0.1 mg/dL (0.0-0.2); BILIRUBIN,TOTAL 0.2 mg/dL (0.2-1.0); LIPASE 140 U/L (73-393)
[2022-04-11 21:46] LABS: BASOPHILS % (AUTO) 0.7 % (0.0-2.0); EOSINOPHILS % (AUTO) 4.4 % (0.0-6.0); HEMATOCRIT 35 % (33-45); HEMOGLOBIN 11.2 g/dL (11.5-14.8); LYMPHOCYTES # (AUTO) 2.7 K/uL (0.8-4.8); LYMPHOCYTES % (AUTO) 48.3 % (20.0-44.0); MEAN CORPUSCULAR HGB CONC 33 g/dl (31.0-36.0); MEAN CORPUSCULAR VOLUME 87 fL (82-100); MONOCYTES # (AUTO) 0.6 K/uL (0.1-1.30); MONOCYTES % (AUTO) 10.7 % (2.0-12.0); NEUTROPHILS % (AUTO) 35.9 % (43.0-81.0); PLATELET COUNT (AUTO) 137 K/uL (150-450); RED BLOOD CELL COUNT(AUTO) 3.98 MIL/uL (4.0-5.2); WHITE BLOOD COUNT (AUTO) 5.5 K/uL (4.3-11.0)
--- NOTE | 2022-04-11 22:06 | NUR ---
URINE COLLECTED AND SENT TO LAB
[2022-04-11 22:58] LABS: BILIRUBIN,URINE NEGATIVE (NEGATIVE); COLOR,URINE YELLOW (YELLOW); LEUKOCYTE ESTERASE ,URINE SMALL (NEGATIVE); NITRITE, URINE NEGATIVE (NEGATIVE); PROTEIN,URINE NEGATIVE (NEGATIVE); UGLUCOSE NEGATIVE (NEGATIVE); UROBILINOGEN,URINE 0.2 EU/dL (0.2)
[2022-04-11 23:00] LABS: BACTERIA,URINE Rare /HPF (None Seen); RBC,URINE 0-2 /HPF (0-2); SQUAMOUS EPITHELIAL CELL,UR Few /HPF (None Seen)
[2022-04-11] MEDS ORDERED: CEPH500C2 PO (23:05)
--- NOTE | 2022-04-11 23:28 | NUR ---
Written and verbal after care instructions given. Patient verbalizes understanding of instruction. IV removed. Catheter intact and site benign. Pressure and 4x4 applied to site. No bleeding noted. Awaiting ambulance for pt to DC pt
--- NOTE | 2022-04-11 23:30 | NUR ---
[facility] BLS ETA 60-90 MINUTES
--- NOTE | 2022-04-12 01:00 | NUR ---
REPORT GIVEN TO [facility] FOR PT TO DC HOME. VSS. ALL BELONGINGS WITH PT.
[2022-04-12 01:02] VITALS: BP 162/86
== END 2022-04-12 01:13 | disposition home or self-care (01) ==
LOC: ER 20:17
DX: K57.30 Diverticulosis of large intestine without perforation or abscess without bleeding (principal); I10 Essential (primary) hypertension; I25.10 Atherosclerotic heart disease of native coronary artery without angina pectoris; E11.9 Type 2 diabetes mellitus without complications; Z98.890 Other specified postprocedural states; Z60.2 Problems related to living alone; Z79.899 Other long term (current) drug therapy; Z79.82 Long term (current) use of aspirin
CPT/HCPCS: 99284; 74176; 85025; 80048; 87086; 83690; 80076; 81001; 36415; J7030

== ENCOUNTER 2022-06-19 16:51 | Inpatient (IN) | payer MEDICARE, OTHER ==
[~2022-06-19] VITALS: Ht 152.4 cm; Wt 70.3 kg
[~2022-06-19 16:51] MED LIST changes: +CEPH500C2 PO
[2022-06-19] MEDS ORDERED: MORPHINE SULFATE INJ 2 MG/ML DISP.SYRIN IV ONE ×2 (17:00→18:00)
[2022-06-19] MEDS ORDERED: IV NS 0.9% 1,000 ML BAG IV ONE (17:00)
[2022-06-19] MEDS ORDERED: ONDANSETRON HCL/PF 4 MG/2 ML VIAL IVP ONE (17:00)
--- NOTE | 2022-06-19 17:00 | NUR ---
To ER bed 1, home c/o abdominal pain since this am s/p colonoscopy procedure, aaox3, breathing even and non labored, connected to monitor, Dr Silverio at bedside
[2022-06-19] MEDS ORDERED: MORPHINE SULFATE INJ 4 MG/ML DISP.SYRIN ONE ×2 (17:02→18:05)
--- NOTE | 2022-06-19 17:04 | NUR ---
PT TAKEN TO CT
--- NOTE | 2022-06-19 17:17 | NUR ---
SPOKE W/ RADIOLOGY AND WILL CALL [facility] FOR CT RESULT READING
[2022-06-19] MEDS ORDERED: ONDANSETRON HCL/PF 4 MG/2 ML VIAL ONE (17:21)
[2022-06-19 17:39] LABS: BASOPHILS % (AUTO) 0.3 % (0.0-2.0); EOSINOPHILS % (AUTO) 0.7 % (0.0-6.0); HEMATOCRIT 41 % (33-45); HEMOGLOBIN 13.1 g/dL (11.5-14.8); LYMPHOCYTES # (AUTO) 1.2 K/uL (0.8-4.8); LYMPHOCYTES % (AUTO) 12.7 % (20.0-44.0); MEAN CORPUSCULAR HGB CONC 32 g/dl (31.0-36.0); MEAN CORPUSCULAR VOLUME 83 fL (82-100); MONOCYTES # (AUTO) 0.7 K/uL (0.1-1.30); MONOCYTES % (AUTO) 7.6 % (2.0-12.0); NEUTROPHILS # (AUTO) 7.4 K/uL (1.8-8.9); NEUTROPHILS % (AUTO) 78.7 % (43.0-81.0); PLATELET COUNT (AUTO) 183 K/uL (150-450); RED BLOOD CELL COUNT(AUTO) 4.97 MIL/uL (4.0-5.2); WHITE BLOOD COUNT (AUTO) 9.4 K/uL (4.3-11.0)
--- NOTE | 2022-06-19 17:45 | NUR ---
COVID SWAB DONE AND SENT TO LAB
[2022-06-19 17:57] LABS: ALANINE AMINOTRANSFERASE 24 U/L (12-78); ALBUMIN 3.9 g/dL (3.4-5.0); ALKALINE PHOSPHATASE 64 U/L (46-116); ASPARTATE AMINOTRANSFERASE 30 U/L (15-37); BILIRUBIN,DIRECT 0.1 mg/dL (0.0-0.2); BILIRUBIN,TOTAL 0.3 mg/dL (0.2-1.0); CALCIUM, SERUM 8.6 mg/dL (8.5-10.1); CARBON DIOXIDE 23 mmol/L (21-32); CHLORIDE 106 mmol/L (98-107); CREATININE 1.4 mg/dL (0.6-1.3); GLUCOSE 250 mg/dL (74-106); LIPASE 125 U/L (73-393); POTASSIUM 3.8 mmol/L (3.5-5.1); SODIUM SERUM 138 mmol/L (136-145); TOTAL PROTEIN, SERUM 7.9 g/dL (6.4-8.2); UREA NITROGEN, BLOOD 11 mg/dL (7-18)
[2022-06-19] MEDS ORDERED: CEFEPIME 1 GM in IV D5W 50 ML IV ONE (18:00)
--- NOTE | 2022-06-19 18:07 | NUR ---
MRSA SWAB OBTAINED AND SENT TO LAB
--- NOTE | 2022-06-19 18:58 | NUR ---
URINE COLLECTED AND SENT TO LAB
--- NOTE | 2022-06-19 19:24 | NUR ---
Daughter Olivia: [phone]
[2022-06-19] MEDS ORDERED: LORAZEPAM INJ 2 MG/ML VIAL IV PRN (19:30)
[2022-06-19] MEDS ORDERED: ACETAMINOPHEN 650 MG/SUPP.RECT RC PRN (19:30)
[2022-06-19] MEDS ORDERED: Z GUARD REMEDY 4 OZ OINT TP PRN (19:30)
[2022-06-19] MEDS ORDERED: ONDANSETRON HCL/PF 4 MG/2 ML VIAL IVP PRN (19:30)
[2022-06-19] MEDS ORDERED: ZOLPIDEM TARTRATE 5 MG TABLET PO PRN (19:30)
--- NOTE | 2022-06-19 19:45 | NUR ---
CATIE MARQUES DNP AT PT'S BEDSIDE
[2022-06-19 19:51] LABS: BILIRUBIN,URINE NEGATIVE (NEGATIVE); COLOR,URINE YELLOW (YELLOW); LEUKOCYTE ESTERASE ,URINE TRACE (NEGATIVE); NITRITE, URINE NEGATIVE (NEGATIVE); PH,URINE 5.5 (5.0-8.0); PROTEIN,URINE NEGATIVE (NEGATIVE); UGLUCOSE 250 MG/DL mg/dL (NEGATIVE); UROBILINOGEN,URINE 0.2 EU/dL (0.2)
[2022-06-19] MEDS ORDERED: IV NS 0.9% 1,000 ML IV PRN (20:00)
[2022-06-19] MEDS ORDERED: DEXTROSE 50%-WATER 50 ML DISP.SYRIN IV PRN (20:00)
[2022-06-19 20:13] LABS: BACTERIA,URINE Rare /HPF (None Seen); RBC,URINE 0-2 /HPF (0-2); SQUAMOUS EPITHELIAL CELL,UR Few /HPF (None Seen); WBC,URINE 0-2 /HPF (0-3)
--- NOTE | 2022-06-19 20:13 | NUR ---
REPORT GIVEN TO FRED Tafoya RN FOR LULA
--- NOTE | 2022-06-19 20:17 | NUR ---
PT TRANSFERRING TO [facility]- VIA HOSPITAL PROTOCOL. VSS. ALL BELONGINGS WITH PT.
[2022-06-19 20:18] VITALS: BP 113/62
[2022-06-19] MEDS: MORPHINE SULFATE INJ 2 MG/ML DISP.SYRIN IV PRN (21:55)
[2022-06-19 23:52] VITALS: BP 131/52
[2022-06-20] MEDS: BLOOD SUGAR DIAGNOSTIC 1 EACH STRIP IN SCH ×5 (00:05→23:16)
[2022-06-20] MEDS: INSULIN REGULAR, HUMAN 100 UNIT/ML 3 ML VIAL SQ PRN ×2 (00:06→06:54)
--- NOTE | 2022-06-20 02:46 | NUR ---
ADMISSION RN NOTE PATIENT CAME IN UNIT AT AROUND 2019 ACCOMPANIED BY 1 ER PERSONNEL, VIA [employer]. PATIENT IS A/OX4. NO S/S OF APPARENT DISTRESS ON 4LPM OF O2 VIA NC. BREATHING EVEN AND UNLABORED. PER PATIENT SHE IS WHEELCHAIR BOUND AND CANNOT WALK. PATIENT NOTED TO HAVE PRODUCTIVE COUGHING. PATIENT C/O 8/10 PAIN ON HER RIGHT LOWER QUADRANT-- MANAGED WITH MEDICATION. UPON ASSESSMENT, PATIENT ABDOMEN SOFT AND TENDER TO PALPATE. BILA. COMPRESSION STOCKINGS NOTED IN PLACE ON PATIENT BUT NO EDEMA NOTED. TELE MONITOR INITIALLY SINUS TACHY 115-119'S NOW ON SINUS RHYTHM 97 BPM. PATIENT WISHES TO BE FULL CODE. PER PATIENT SHE IS UP-TO-DATE WITH HER IMMUNIZATIONS INCLUDING COVID.NEW ID BAND ON PATIENT. BELONGINGS CHECKED. IV ACCESS ON RT. AC #20G RUNNING NS @50MLS/HR. ORIENTED IN THE UNIT AND THE USE OF CALL LIGHT. SAFETY PUT IN PLACE. NEEDS ATTENDED FOR NOW. WILL CONTINUE WITH THE PLAN OF CARE FOR PATIENT AND FOLLOW THROUGH DOCTOR'S ORDERS. PER PATIENT SHE IS NEEDING TRANSPORTATION/AMBULANCE GOING HOME.
[2022-06-20 04:13] VITALS: BP 133/54
[2022-06-20] MEDS: MORPHINE SULFATE INJ 2 MG/ML DISP.SYRIN IV PRN ×2 (04:21→11:20)
[2022-06-20 06:36] LABS: CALCIUM, SERUM 7.3 mg/dL (8.5-10.1); CREATININE 1.1 mg/dL (0.6-1.3); PHOSPHORUS 3.3 mg/dL (2.5-4.9); POTASSIUM 3.5 mmol/L (3.5-5.1)
[2022-06-20 06:43] LABS: BASOPHILS % (AUTO) 0.2 % (0.0-2.0); EOSINOPHILS % (AUTO) 0.3 % (0.0-6.0); HEMATOCRIT 34 % (33-45); HEMOGLOBIN 10.8 g/dL (11.5-14.8); LYMPHOCYTES # (AUTO) 1.5 K/uL (0.8-4.8); LYMPHOCYTES % (AUTO) 15.9 % (20.0-44.0); MEAN CORPUSCULAR HGB CONC 32 g/dl (31.0-36.0); MEAN CORPUSCULAR VOLUME 83 fL (82-100); MONOCYTES # (AUTO) 0.8 K/uL (0.1-1.30); MONOCYTES % (AUTO) 8.5 % (2.0-12.0); NEUTROPHILS # (AUTO) 7.3 K/uL (1.8-8.9); NEUTROPHILS % (AUTO) 75.1 % (43.0-81.0); PLATELET COUNT (AUTO) 139 K/uL (150-450); RED BLOOD CELL COUNT(AUTO) 4.06 MIL/uL (4.0-5.2); WHITE BLOOD COUNT (AUTO) 9.7 K/uL (4.3-11.0)
--- NOTE | 2022-06-20 07:25 | NUR ---
RN OPENING NOTE PATIENT IS A/OX4. PT IS FARSI/SWEDISH SPEAKING. PT IS SINUS RHTYM ON TELE MONITOR. PT SKIN INTACT, PT IS WHEELCHAIR BOUND. PT ON NASAL CANNULA 4LPM TOLERATING AT ABOVE 94%. PT ABDOMEN SOFT AND NON TENDER.PT HAS COMPRESSION STOCKINGS IN PLACE. NO EDEMA NOTED. NO SIGNS OF PAIN OR DISCOMFORT NOTED AT THIS TIME.PT CURRENTLY NPO PER MD ORDER. PT IV R HAND, INTACT, PATENT. ALL SAFETY MEASURES IN PLACE. BEDSIDE TABLE NEXT TO PATIENT, CALL LIGHT WITHIN REACH. BED LOCKED AT LOWEST POSITION.SIDE RAILS UP
--- NOTE | 2022-06-20 07:49 | NUR ---
report given to Oneyda for continuity of patient care.
[2022-06-20 08:00] VITALS: BP 122/58
[2022-06-20] MEDS ORDERED: Medication Not On Formulary EA (Denosumab (Prolia) 60 MG) SQ SCH (08:00)
[2022-06-20] MEDS: CLOPIDOGREL BISULFATE 75 MG TABLET PO SCH ×2 (08:00→21:07)
[2022-06-20] MEDS ORDERED: ACETAMINOPHEN ES 500 MG TABLET PO PRN (08:00)
[2022-06-20 08:23] LABS: THYROID STIMULATING HORMONE 0.726 uIU/mL (0.358-3.74)
[2022-06-20] MEDS: ATENOLOL 25 MG TABLET PO SCH (09:00)
[2022-06-20] MEDS: METFORMIN 500 MG TABLET PO SCH ×2 (09:00→17:00)
[2022-06-20] MEDS: ASPIRIN EC 81 MG TABLET.DR PO SCH (09:00)
[2022-06-20] MEDS: LISINOPRIL (10MG) 10 MG TABLET PO SCH (09:00)
[2022-06-20] MEDS ORDERED: Medication Not On Formulary EA ([Myrbetriq] 25 MG) PO SCH (09:00)
[2022-06-20] MEDS: PREGABALIN 25 MG CAPSULE PO SCH ×2 (09:00→17:01)
[2022-06-20] MEDS ORDERED: PANTOPRAZOLE 40 MG VIAL IV SCH (09:00)
--- NOTE | 2022-06-20 10:00 | NUR ---
RN NOTE NOTIFIED DR. BOWDEN IF PATIENT CAN EAR. WANTS PT TO BE NPO FOR NOW
--- NOTE | 2022-06-20 11:20 | NUR ---
RN NOTE administered morphine due to patient pain level 10/10 abdominal pain.
--- NOTE | 2022-06-20 11:50 | NUR ---
rn note reassessed pt pain level. said medication was effective
[2022-06-20 12:00] VITALS: BP 121/56
[2022-06-20] MEDS: ZOSYN IVPB 3.375 G in IV D5W 50ml IV ONE ×3 (15:16→15:50)
[2022-06-20 16:00] VITALS: BP 119/61
--- NOTE | 2022-06-20 16:00 | NUR ---
RN NOTE UPDATED PT DAUGHTER ABOUT PT CONDITION.
--- NOTE | 2022-06-20 17:00 | NUR ---
RN NOTE NOTIFIED DR. BOWDEN THAT PT DAUGHTER WANTS UPDATE AND IF SHE CAN START CLEAR LIQUID DIET TODAY. SAID OKAY
[2022-06-20] MEDS ORDERED: CEFEPIME 1 GM in IV D5W 50 ML IV SCH (18:00)
--- NOTE | 2022-06-20 18:53 | NUR ---
RN CLOSING NOTE PT IS A/OX4. PT IS FARSI/FAROESE SPEAKING. PT IS ON TELE MONITOR CURRENTLY SINUS TACHYCARDIC/SINUS RHYTM. ALL NEEDS MET. NO PAIN OR DISCOMFORT NOTED AT THIS TIME. PT SKIN INTACT, PT IS WHEELCHAIR BOUND. PT ON NASAL CANNULA 4LPM TOLERATING AT ABOVE 94%. PT ABDOMEN SOFT AND NON TENDER.PT HAS COMPRESSION STOCKINGS IN PLACE. NO EDEMA NOTED. NO SIGNS OF PAIN OR DISCOMFORT NOTED AT THIS TIME.PT CAN BE ON CLEAR LIQUID DIET PER MD ORDER. PT IV R HAND, INTACT, PATENT. ALL SAFETY MEASURES IN PLACE. BEDSIDE TABLE NEXT TO PATIENT, CALL LIGHT WITHIN REACH. BED LOCKED AT LOWEST POSITION.SIDE RAILS UP X2
--- NOTE | 2022-06-20 19:44 | NUR ---
RN OPENING NOTE RECEIVED PATIENT IN BED AA/OX4, FARSI/GUYANESE SPEAKING.ON 4L O2 NASAL CANNULA TOLERATING WELL,NO SIGN SOB/DISTRESS NOTED,PT HAS COMPRESSION STOCKINGS IN PLACE.ELSIE WELL,NO SIGNS OF PAIN OR DISCOMFORT NOTED AT THIS TIME.IV SITE RAC 20G INTACT, PATENT. ALL SAFETY MEASURES IN PLACE. BEDSIDE TABLE NEXT TO PATIENT, CALL LIGHT WITHIN REACH.WILL CONTINUE TO MONITOR.
[2022-06-20 20:36] VITALS: BP 131/72
[2022-06-20] MEDS ORDERED: ATORVASTATIN 10 MG TABLET PO SCH (22:00)
[2022-06-20] MEDS ORDERED: ERYTHROMYCIN BASE OPHTH 3.5 GM TUBE EACHEYE SCH (22:00)
[2022-06-20] MEDS: PIPERACILLIN /TAZOBACTAM 3.375 G in IV D5W 100 ML IV SCH (23:01)
[2022-06-21 00:45] VITALS: BP 147/62
[2022-06-21 05:07] VITALS: BP 149/90
[2022-06-21] MEDS: BLOOD SUGAR DIAGNOSTIC 1 EACH STRIP IN SCH ×2 (06:05→11:31)
[2022-06-21] MEDS: PIPERACILLIN /TAZOBACTAM 3.375 G in IV D5W 100 ML IV SCH ×2 (06:06→15:29)
--- NOTE | 2022-06-21 06:18 | NUR ---
RN CLOSING NOTES;311-2 PATIENT IN BED AA/OX4, FARSI/WELSH SPEAKING.ON 4L O2 NASAL CANNULA TOLERATING WELL,NO SIGN SOB/DISTRESS NOTED,NO SIGNS OF PAIN OR DISCOMFORT DURING SHIFT,DUE MEDS GIVEN ORDER,ALL NEEDS ATTENDED.IV SITE RAC 20G INTACT, PATENT. ALL SAFETY MEASURES IN PLACE. BEDSIDE TABLE NEXT TO PATIENT, CALL LIGHT WITHIN REACH.WILL ENDORSED TO NEXT SHIFT.
[2022-06-21 06:51] LABS: BASOPHILS % (AUTO) 0.4 % (0.0-2.0); EOSINOPHILS % (AUTO) 2.3 % (0.0-6.0); HEMATOCRIT 32 % (33-45); HEMOGLOBIN 10.1 g/dL (11.5-14.8); LYMPHOCYTES # (AUTO) 1.9 K/uL (0.8-4.8); MEAN CORPUSCULAR HGB CONC 32 g/dl (31.0-36.0); MEAN CORPUSCULAR VOLUME 83 fL (82-100); MONOCYTES # (AUTO) 0.5 K/uL (0.1-1.30); MONOCYTES % (AUTO) 7.6 % (2.0-12.0); NEUTROPHILS # (AUTO) 4.5 K/uL (1.8-8.9); NEUTROPHILS % (AUTO) 62.7 % (43.0-81.0); PLATELET COUNT (AUTO) 126 K/uL (150-450); RED BLOOD CELL COUNT(AUTO) 3.85 MIL/uL (4.0-5.2); WHITE BLOOD COUNT (AUTO) 7.2 K/uL (4.3-11.0)
[2022-06-21 07:00] VITALS: BP 139/73
[2022-06-21 07:05] LABS: ALBUMIN 2.4 g/dL (3.4-5.0); BILIRUBIN,TOTAL 0.3 mg/dL (0.2-1.0); CALCIUM, SERUM 7.3 mg/dL (8.5-10.1); CREATININE 0.9 mg/dL (0.6-1.3); MAGNESIUM 2.1 mg/dL (1.8-2.4); PHOSPHORUS 1.9 mg/dL (2.5-4.9); POTASSIUM 3.2 mmol/L (3.5-5.1); TOTAL PROTEIN, SERUM 5.8 g/dL (6.4-8.2)
--- NOTE | 2022-06-21 07:25 | NUR ---
RN OPENING NOTES RECEIVED PATIENT IN BED AWAKE, A/O X4, VERBALLY RESPONSIVE. NO SIGNS OF ACUTE DISTRESS NOTED. ON O2 @ 4LPM VIA N/C, SPO2 @99%. NO SOB NOTED, BREATHING EVEN AND UNLABORED. STILL WITH C/O ABDOMINAL PAIN, BUT PER PATIENT IT'S BETTER AND TOLERABLE, DOESN'T WANT ANY PAIN MEDICATION AT THIS TIME. ON TELE MONITOR SHOWING ST, HR @ 113, NO S/SX OF CARDIAC DISTRESS. NOTED WITH PERIPHERAL IV ON RIGHT AC #20G, INTACT AND PATENT, IV ABX ZOSYN CURRENTLY ONGOING. SAFETY MEASURE IN PLACE. BED IN LOWEST AND LOCKED POSITION, SIDE RAILS UP X2, CALL LIGHT PLACED WITHIN EASY REACH. WILL CONTINUE TO MONITOR PATIENT.
[2022-06-21] MEDS ORDERED: PANTOPRAZOLE 40 MG TABLET.DR PO SCH (07:30)
[2022-06-21] MEDS: ASPIRIN EC 81 MG TABLET.DR PO SCH (08:44)
[2022-06-21] MEDS: PREGABALIN 25 MG CAPSULE PO SCH (08:44)
[2022-06-21] MEDS: ATENOLOL 25 MG TABLET PO SCH (08:44)
[2022-06-21] MEDS: METFORMIN 500 MG TABLET PO SCH (08:44)
[2022-06-21] MEDS: LISINOPRIL (10MG) 10 MG TABLET PO SCH (08:45)
[2022-06-21 10:12] LABS: IRON, SERUM 15 ug/dl (50-175); TOTAL IRON BINDING CAPACITY 252 ug/dl (250-450)
[2022-06-21 10:27] LABS: FERRITIN 71 ng/mL (8-388)
[2022-06-21] MEDS ORDERED: K PHOS NEUTRAL 250 MG TABLET PO ONE (10:30)
[2022-06-21] MEDS: INSULIN REGULAR, HUMAN 100 UNIT/ML 3 ML VIAL SQ PRN (11:31)
[2022-06-21 12:00] VITALS: BP 117/59
--- NOTE | 2022-06-21 16:20 | NUR ---
PHYSICAL AERODYNAMICIST NOTE PATIENT DISCHARGED TO HOME IN STABLE CONDITION. PATIENT AWAKE, ALERT AND ORIENTED X4, VERBALLY RESPONSIVE. NO SIGNS OF ACUTE DISTRESS NOTED. STABLE ON ROOM AIR. IV ACCESS ON RIGHT AC REMOVED, NO BLEEDING NOTED. PRESSURE DRESSING APPLIED. ARM NAME BAND REMOVED. ALL BELONGINGS ACCOUNTED FOR, FORM SIGNED BY PATIENT. DISCHARGE INSTRUCTIONS AND HEALTH TEACHINGS PROVIDED TO PATIENT WITH VERBALIZATION OF UNDERSTANDING. PATIENT'S DAUGHTER BRUNA AWARE OF DISCHARGE. EXIT CARE FOLDER GIVEN TO ESTONIAN PROFESSIONAL AMBULANCE CREW. HANDOFF REPORT GIVEN. PATIENT LEFT UNIT @1618 VIA [employer] GroupRNEY. CN AWARE OF DISCHARGE.
== END 2022-06-21 16:20 | disposition home or self-care (01) | DRG 391 ==
LOC: ER 16:53 → MED 19:55 → TELE 20:22
PROVIDERS: ADMIT Nurse Practitioner Acute Care
DX: K52.9 Noninfective gastroenteritis and colitis, unspecified (principal); N17.0 Acute kidney failure with tubular necrosis; I13.0 Hypertensive heart and chronic kidney disease with heart failure and stage 1 through stage 4 chronic kidney disease, or unspecified chronic kidney disease; N39.0 Urinary tract infection, site not specified; N18.9 Chronic kidney disease, unspecified; Z20.822 Contact with and (suspected) exposure to COVID-19; I25.10 Atherosclerotic heart disease of native coronary artery without angina pectoris; Z95.1 Presence of aortocoronary bypass graft; E11.22 Type 2 diabetes mellitus with diabetic chronic kidney disease; Z79.84 Long term (current) use of oral hypoglycemic drugs; Z79.02 Long term (current) use of antithrombotics/antiplatelets; Z79.899 Other long term (current) drug therapy; Z79.82 Long term (current) use of aspirin; E78.5 Hyperlipidemia, unspecified; E11.65 Type 2 diabetes mellitus with hyperglycemia; K44.9 Diaphragmatic hernia without obstruction or gangrene; I25.2 Old myocardial infarction; K57.90 Diverticulosis of intestine, part unspecified, without perforation or abscess without bleeding; E87.6 Hypokalemia; R60.0 Localized edema
CPT/HCPCS: 36415; 71045-TC; 80048-TC; 80053-TC; 80076-TC; 81001; 82728-TC; 82962-TC; 83540-TC; 83690-TC; 83735-TC; 84100-TC; 84439-TC; 84443-TC; 85025-TC; 85652-TC; 86140-TC; 87081-TC; 93307-TC; 93970-TC; 94799-TC; C9113; C9803; G0378; J0692; J1815; J2270; J2405; J2543; J7030; J7060